=== PATIENT | male | born 1955 | race Caucasian/White ===

== ENCOUNTER 2018-04-05 12:03 | Day surgery (SDC) | payer OTHER ==
[2018-04-05] VITALS (14 sets, daily range): BP systolic 114–202; BP diastolic 68–97; PULSE 79–95; RESP 14–21; Ht 167.6 cm; Wt 87.4 kg
[~2018-04-05] VITALS: Ht 167.6 cm; Wt 87.4 kg
--- NOTE | 2018-04-05 08:30 | SIPON ---
Date/Time of Note Date/Time of Note DATE: 04/05/18 TIME: 08:30 Operative Report Preoperative Diagnosis dns Postoperative Diagnosis dns Operation/Procedure Performed stm Surgeon see signature line cleaner assistant na Anesthesia: general Estimated blood loss: 10 - 50 ml's Transfusion Required none Specimen septum Grafts/Implants none Complications none BIJAL FARAH MD Apr 05, 2018 08:30
[~2018-04-05 12:03] MED LIST: DEXAMETHASONE 4 MG/ML 5 ML INJ ONE; ONDANSETRON 4 MG INJ ONE
[2018-04-05] MEDS ORDERED: ASPI81TA52 PO (12:29)
[2018-04-05] MEDS ORDERED: BUDE6.9H INHALATION (12:30)
[2018-04-05] MEDS ORDERED: GLIM4TAB PO (12:30)
[2018-04-05] MEDS ORDERED: MELO7.5T38 PO (12:31)
[2018-04-05] MEDS ORDERED: LINA1TAB7 PO (12:31)
[2018-04-05] MEDS ORDERED: ALBU18HF INHALATION (12:32)
[2018-04-05] MEDS ORDERED: LISI1TAB6 PO (12:33)
[2018-04-05] MEDS ORDERED: TRAM50TA PO (12:34)
[2018-04-05] MEDS ORDERED: ATOR40TA68 PO (12:34)
[2018-04-05] MEDS ORDERED: ONDA4TAB8 PO (12:35)
[2018-04-05] MEDS ORDERED: GABA100C14 PO (12:35)
[2018-04-05] MEDS ORDERED: HYDR-3980 PO (12:36)
[2018-04-05] MEDS ORDERED: FENTAnyl 50 MCG/ML VIAL ONE (13:16)
[2018-04-05] MEDS ORDERED: MIDAZOLAM 1 MG/ML 2 ML INJ ONE (13:19)
[2018-04-05] MEDS ORDERED: LIDOCAINE 2% (SDV) 5 ML INJ ONE (13:32)
[2018-04-05] MEDS ORDERED: PROPOFOL 20 ML ONE (13:32)
[2018-04-05] MEDS ORDERED: SUCCINYLCHOLINE CHLORIDE 100 MG/5 ML SYG IV ONE (13:33)
[2018-04-05] MEDS ORDERED: METOCLOPRAMIDE 10 MG INJ ONE (13:33)
[2018-04-05] MEDS ORDERED: ROCURONIUM 50 MG INJ ONE (13:33)
--- NOTE | 2018-04-05 14:26 | PREAC ---
Date/Time of Note Date/Time of Note DATE: 04/05/18 TIME: 14:25 Anesthesia Eval and Record Evaluation Time Pre-Procedure Interview DATE: 04/05/18 TIME: 14:25 Age 62 Sex male NPO: 8 hrs Preoperative diagnosis deviated nasal septum, turninate hypertrophy Planned procedure septoplasty,turbinate resection Past Medical History Past Medical History: Includes Cardio: HTN, Dyslipidemia Endo: Diabetes Pulm: COPD, Sleep Apnea GI: Obesity Surgery & Anesthesia Issues Hx of difficult intubation Meds Anticoagulation: No Beta Su within 24 hr: No Reason Beta Su not given: Pt. not on B-Su Reported Medications Hydrocodone/Acetaminophen ([place] 10-325 Tablet) 1 Each Tablet, 1 EACH PO Q6, TAB 04/05/18 Ondansetron Hcl* (Zofran*) 4 Mg Tablet, 4 MG PO Q6H PRN for NAUSEA AND OR VOMITING, TAB 04/05/18 Gabapentin* (Gabapentin*) 100 Mg Capsule, 100 MG PO TID, #90 CAP 04/05/18 Atorvastatin* (Atorvastatin*) 40 Mg Tablet, 40 MG PO QHS, #30 TAB 04/05/18 Tramadol Hcl* (Ultram*) 50 Mg Tablet, 50 MG PO Q8 PRN for PAIN, TAB 04/05/18 Lisinopril/Hydrochlorothiazide (Lisinopril-Hctz 20-12.5 mg Tab) 1 Each Tablet, 1 EACH PO DAILY, TAB 04/05/18 Albuterol Sulfate* (Ventolin HFA*) 18 Gm Hfa.aer.ad, 2 PUFF INHALATION Q4H, #1 INHALER 04/05/18 Meloxicam* (Meloxicam*) 7.5 Mg Tablet, 7.5 MG PO DAILY, #30 TAB 04/05/18 Linagliptin/Metformin HCl (Jentadueto Xr 2.5 mg-1,000 mg) 1 Each Tab.bp.24h, 1 EACH PO BID, TAB 04/05/18 Budesonide-Formoterol Fumarate* (Symbicort*) 80-4.5 Mcg Hfa.aer.ad, 2 PUFF INHALATION BID, BOTTLE 04/05/18 Glimepiride* (Glimepiride*) 4 Mg Tablet, 4 MG PO WITH BREAKFAST DINNE, TAB 04/05/18 Aspirin (Low Dose Aspirin) 81 Mg Tablet.dr, 81 MG PO DAILY, #30 TAB 04/05/18 Meds reviewed: Yes Allergies Coded Allergies: No Known Allergy (Unverified , 04/05/18) Allergies Reviewed: Yes Labs/Studies Labs Reviewed: Reviewed by anesthesiologist test: N/A Studies: ECG, CXR Pre-procedure Exam Last vitals Vital Signs Date Temp Pulse Resp B/P (MAP) Pulse Ox O2 O2 Flow FiO2 Time Delivery Rate 04/05/18 97.2 79 16 153/74 98 Room Air 13:03 (100) Airway: Adequate mouth opening, Adequate thyromental dist Mallampati: Mallampati III Teeth: Normal Lung: Normal Heart: Normal ASA Physical Status ASA physical status: 3 Emergency: None Planned Anesthetic General/MAC: ETT Planned Pain Management Parenteral pain med, Local by surgeon Pre-operative Attestations Prior to commencing anesthesia and surgery, the patient was re-evaluated, there was verification of: *The patient's identity *The results of appropriate recent lab work and preoperative vital signs *The above evaluation not changing prior to induction *Anesthetic plan, risk benefits, alternative and complications discussed with patient/family; questions answered; patient/family understands, accepts and wishes to proceed. HARESH IZAGUIRRE MD Apr 05, 2018 14:26
--- NOTE | 2018-04-05 14:28 | HPN ---
Date/Time of Note Date/Time of Note DATE: 04/05/18 TIME: 14:28 Interval H&P Admission Note Pt. seen H&P reviewed: No system changes BIJAL FARAH MD Apr 05, 2018 14:28
[2018-04-05] MEDS ORDERED: LEVALBUTEROL (NEB) 1.25 MG/0.5 ML AMP HHN PRN (14:30)
[2018-04-05] MEDS ORDERED: IPRATROPIUM (NEB) 0.5 MG/2.5 ML AMP HHN PRN (14:30)
[2018-04-05] MEDS ORDERED: LIDOCAINE 1%/EPI (1:100,000) (MDV) 20 ML ONE (14:30)
[2018-04-05] MEDS ORDERED: MEPERIDINE 25 MG INJ IV PRN (14:30)
[2018-04-05] MEDS ORDERED: ONDANSETRON 4 MG INJ IV PRN (14:30)
[2018-04-05] MEDS ORDERED: HYDROmorphONE 1 MG/5 ML IV SYRINGE IV PRN ×2 (14:30)
[2018-04-05] MEDS ORDERED: FENTAnyl 50 MCG/ML VIAL IV PRN ×2 (14:30)
[2018-04-05] MEDS ORDERED: LABETALOL HCL 20MG INJ IV PRN (14:30)
[2018-04-05] MEDS ORDERED: OXYMETAZOLINE 0.05% 15 ML NAS SPRAY NASAL ONE (14:30)
[2018-04-05] MEDS ORDERED: hydrALAzine 20 MG INJ IV PRN (14:30)
[2018-04-05] MEDS ORDERED: DIPHENHYDRAMINE 50 MG INJ IV PRN (14:30)
[2018-04-05] MEDS ORDERED: METOPROLOL 5 MG INJ ONE (15:16)
--- NOTE | 2018-04-05 16:21 | PAC ---
Date/Time of Note Date/Time of Note DATE: 04/05/18 TIME: 16:21 Post-Anesthesia Notes Post-Anesthesia Note Last documented vital signs Vital Signs Date Temp Pulse Resp B/P (MAP) Pulse Ox O2 O2 Flow FiO2 Time Delivery Rate 04/05/18 97.2 79 16 153/74 98 Room Air 13:03 (100) Activity: WNL Respiratory function: WNL Cardiovascular function: WNL Mental status: Baseline Pain reasonably controlled: Yes Hydration appropriate: Yes Nausea/Vomiting absent: Yes HARESH IZAGUIRRE MD Apr 05, 2018 16:21
== END 2018-04-05 17:39 | disposition home or self-care (01) ==
LOC: SDS 12:03
PROVIDERS: ATTEND Otolaryngology
DX: J34.2 Deviated nasal septum (principal); J34.3 Hypertrophy of nasal turbinates; I10 Essential (primary) hypertension; E11.9 Type 2 diabetes mellitus without complications; E78.5 Hyperlipidemia, unspecified; J44.9 Chronic obstructive pulmonary disease, unspecified; E66.9 Obesity, unspecified; Z68.31 Body mass index [BMI] 31.0-31.9, adult
CPT/HCPCS: 30140; 30520; 82962; 88300; J1170; J2250; J2765; J3010; Z7610; J1100; J2405